=== PATIENT | male | born 1960 | race Caucasian/White ===

== ENCOUNTER 2017-02-12 14:06 | Emergency (ER) | payer MEDICARE, OTHER ==
[~2017-02-12] VITALS: Ht 188 cm; Wt 193.2 kg
[2017-02-12 14:11] VITALS: TEMP 97.8
[2017-02-12] MEDS ORDERED: KLOR-CON M2020 MEQ PO (14:55)
[2017-02-12] MEDS ORDERED: GRALISE300 MG PO (14:55)
[2017-02-12] MEDS ORDERED: PRINIVIL40 MG PO (14:56)
[2017-02-12] MEDS ORDERED: COREG 25MG25 MG/TAB PO (14:56)
[2017-02-12] MEDS ORDERED: LASIX 20MG TABL20 MG PO (14:56)
[2017-02-12] MEDS ORDERED: LIPITOR20 MG PO (14:57)
[2017-02-12] MEDS ORDERED: ASPIRIN 32325 MG/TAB PO (14:57)
[2017-02-12] MEDS ORDERED: HCTZ 25MG TAB25 MG PO (14:57)
[2017-02-12] MEDS ORDERED: MOBIC 7.5MG7.5 MG PO (14:58)
[2017-02-12] MEDS ORDERED: VITAMINC1000TA (14:58)
[2017-02-12] MEDS ORDERED: B-121000 MCG PO (14:58)
[2017-02-12] MEDS ORDERED: FLEXERIL 1010 MG/TAB PO (14:59)
[2017-02-12] MEDS ORDERED: AMOXICILLIN 8751 TAB PO (15:01)
[2017-02-12 15:05] LABS: B-TYPE NATRIURETIC PEPTIDE 64 pg/mL (0-125); TROPONIN-I < 0.012 ng/mL (0.000-0.034)
[2017-02-12 15:29] LABS: CALCIUM 9.6 mg/dL (8.4-10.2); CREATININE, serum 0.91 mg/dL (0.66-1.25); POTASSIUM 3.5 mmol/L (3.4-5.0)
[2017-02-12] MEDS ORDERED: ANTIVERT 25MG25 MG PO (18:52)
[2017-02-12 20:17] VITALS: BP 121/77; PULSE 70
== END 2017-02-12 20:31 | disposition home or self-care (01) ==
LOC: COL.ER 14:06
PROVIDERS: Emergency Medicine
DX: R60.9 Edema, unspecified (principal); R42 Dizziness and giddiness; R06.02 Shortness of breath

== ENCOUNTER 2017-03-04 07:22 | Emergency (ER) | payer MEDICARE ==
[~2017-03-04] VITALS: Ht 188 cm; Wt 195.5 kg
[~2017-03-04 07:22] MED LIST: AMOXICILLIN 8751 TAB PO; ANTIVERT 25MG25 MG PO; ASPIRIN 32325 MG/TAB PO; B-121000 MCG PO; COREG 25MG25 MG/TAB PO; FLEXERIL 1010 MG/TAB PO; GRALISE300 MG PO; HCTZ 25MG TAB25 MG PO; KLOR-CON M2020 MEQ PO; LASIX 20MG TABL20 MG PO; LIPITOR20 MG PO; MOBIC 7.5MG7.5 MG PO; PRINIVIL40 MG PO; VITAMINC1000TA
[2017-03-04 07:26] VITALS: TEMP 97.8
[2017-03-04 08:10] LABS: BASO % 0.4 % (0.0-2.0); EOS # 0.3 (0.0-0.7); EOS % 2.9 % (0-4.0); GRAN # 7.5 (1.4-6.5); GRAN % 81.4 % (42.2-75.2); HEMATOCRIT 40.4 % (42.0-52.0); HEMOGLOBIN 13.1 g/dl (13.5-18.0); LYMPH # 0.8 (1.2-3.4); LYMPH % 8.7 % (20.0-51.0); MEAN CELL VOLUME 94 fl (80.0-100.0); MEAN CORPUSCULAR HEMOGLOBIN 31 pg (27.0-31.0); MEAN CORPUSCULAR HGB CONC 32 g/dl (33.0-37.0); MEAN PLATELET VOLUME 9.3 fl (7.4-10.4); MONO # 0.6 (0.1-0.6); MONO % 6.2 % (1.7-9.3); PLATELET COUNT 265 K/mm3 (130-400); WHITE BLOOD COUNT 9.2 K/mm3 (4.8-10.8)
[2017-03-04 08:16] LABS: ADJUSTED CALCIUM 9.6 mg/dL (8.4-10.2); ALANINE AMINOTRANSFERASE 32 U/L (21-72); ALBUMIN 4.3 gm/dL (3.5-5.0); ALKALINE PHOSPHATASE 107 U/L (50-136); ANION GAP 12 mmol/L (7-16); BILIRUBIN,TOTAL 1.1 mg/dL (0.0-1.0); BLOOD UREA NITROGEN 21 mg/dL (9-20); C-REACTIVE PROTEIN 1.1 mg/dL (0.0-0.9); CALCIUM 9.8 mg/dL (8.4-10.2); CARBON DIOXIDE 27 mmol/L (22-30); CHLORIDE 102 mmol/L (98-107); CREATININE, serum 0.99 mg/dL (0.66-1.25); GLUCOSE 116 mg/dL (74-106); LIPASE 386 U/L (23-300); POTASSIUM 3.4 mmol/L (3.4-5.0); SODIUM 141 mmol/L (137-145); TOTAL PROTEIN 8.4 gm/dL (6.4-8.2)
[2017-03-04 08:23] LABS: ARTERIAL BLD GAS TCO2 CT 32.1; ARTERIAL BLOOD GAS BASE EXCESS 5.9 (-2-2); ARTERIAL BLOOD GAS HCO3 30.7 meq/L (22-26); ARTERIAL BLOOD GAS PHT 7.45 C (7.35-7.45); ARTERIAL BLOOD GAS PO2 66.7 mmHg (80-100); ARTERIAL BLOOD GAS PO2T 66.7 (80-100); ARTERIAL BLOOD GAS pH 7.45 (7.35-7.45)
[2017-03-04 08:24] LABS: ATS? YES
[2017-03-04 08:25] LABS: B-TYPE NATRIURETIC PEPTIDE 81 pg/mL (0-125)
[2017-03-04 08:26] LABS: TROPONIN-I < 0.012 ng/mL (0.000-0.034)
[2017-03-04 12:30] VITALS: BP 137/87; PULSE 62
== END 2017-03-04 12:30 ==
LOC: COL.ER 07:22
PROVIDERS: Emergency Medicine
DX: R09.02 Hypoxemia (principal); E11.9 Type 2 diabetes mellitus without complications; I10 Essential (primary) hypertension; E78.5 Hyperlipidemia, unspecified; Z79.84 Long term (current) use of oral hypoglycemic drugs
CPT/HCPCS: Q9967

== ENCOUNTER 2018-10-14 10:39 | Emergency (ER) | payer MEDICARE, MEDICAID ==
[~2018-10-14] VITALS: Ht 188 cm; Wt 197.7 kg
[~2018-10-14 10:39] MED LIST changes: -MOBIC 7.5MG7.5 MG PO; +MOBIC15 MG PO
[2018-10-14 10:49] VITALS: TEMP 96.8
[2018-10-14] MEDS ORDERED: AMOXICILLIN 8751 TAB PO (11:24)
[2018-10-14 11:27] LABS: HEMATOCRIT 39.9 % (42.0-52.0); HEMOGLOBIN 12.9 g/dl (13.5-18.0); MEAN CELL VOLUME 98 fl (80.0-100.0); MEAN CORPUSCULAR HEMOGLOBIN 32 pg (27.0-31.0); MEAN CORPUSCULAR HGB CONC 32 g/dl (33.0-37.0); MEAN PLATELET VOLUME 8.7 fl (7.4-10.4); PLATELET COUNT 247 K/mm3 (130-400); RED BLOOD COUNT 4.09 M/mm3 (4.20-5.60); REDCELL DISTRIBUTION WIDTH-CV 13.6 % (11.5-14.5)
[2018-10-14 11:41] LABS: ALANINE AMINOTRANSFERASE 15 U/L (21-72); ALBUMIN 4.1 gm/dL (3.5-5.0); ALKALINE PHOSPHATASE 96 U/L (50-136); ANION GAP 12 mmol/L (7-16); AST,SGOT 27 U/L (15-37); BILIRUBIN,TOTAL 0.8 mg/dL (0.0-1.0); BLOOD UREA NITROGEN 22 mg/dL (9-20); CALCIUM 9.7 mg/dL (8.4-10.2); CARBON DIOXIDE 33 mmol/L (22-30); CHLORIDE 98 mmol/L (98-107); CREATININE, serum 1.08 (0.66-1.25); GLUCOSE 113 mg/dL (74-106); LIPASE 164 U/L (23-300); POTASSIUM 3.4 mmol/L (3.4-5.0); SODIUM 143 mmol/L (137-145); TOTAL PROTEIN 8.2 gm/dL (6.4-8.2)
[2018-10-14 11:46] LABS: PH 7 (5-8); SQUAMOUS EPITHELIAL None Seen /hpf; URINE APPEARANCE Clear; URINE BACTERIA None Seen /hpf; URINE BILIRUBIN Negative (NEGATIVE); URINE BLOOD Negative (NEGATIVE); URINE COLOR Straw; URINE GLUCOSE Negative (NEGATIVE); URINE KETONE Negative (NEGATIVE); URINE LEUKOCYTE ESTERASE Negative (NEGATIVE); URINE NITRATE Negative (NEGATIVE); URINE PROTEIN(semi-quant) Negative (NEGATIVE); URINE RBC 0-2 /hpf; URINE UROBILINOGEN Negative (NEGATIVE); URINE WBC 0-2 /hpf
[2018-10-14 11:47] LABS: BASOPHIL 1 % (0-2); EOSINOPHIL 6 % (0-4); LYMPHOCYTE 10 % (20.0-51.0); NEUTROPHILS 79 % (42.0-75.2); PLATELET ESTIMATE NORMAL (NORMAL)
[2018-10-14 11:49] LABS: COLLECTION METHOD CLEAN CATCH
[2018-10-14 11:52] LABS: TROPONIN-I < 0.012 ng/mL (0.000-0.035)
[2018-10-14] MEDS ORDERED: ZYLOPRIM 100MG100 MG PO (12:40)
[2018-10-14] MEDS ORDERED: TYLENOL 325MG325 MG PO (12:42)
[2018-10-14] MEDS ORDERED: TUMS500 MG (12:43)
[2018-10-14] MEDS ORDERED: NATURAL IRON65 MG (12:44)
[2018-10-14] MEDS ORDERED: COLACE 100100 MG/CAP PO (12:46)
[2018-10-14 13:40] VITALS: BP 104/71; PULSE 68
== END 2018-10-14 13:40 | disposition home or self-care (01) ==
LOC: COL.ER 10:39
PROVIDERS: Emergency Medicine
DX: J40 Bronchitis, not specified as acute or chronic (principal); J32.9 Chronic sinusitis, unspecified; I10 Essential (primary) hypertension; E11.9 Type 2 diabetes mellitus without complications; E66.01 Morbid (severe) obesity due to excess calories; G47.33 Obstructive sleep apnea (adult) (pediatric); I87.2 Venous insufficiency (chronic) (peripheral); Z68.43 Body mass index [BMI] 50.0-59.9, adult; Z79.82 Long term (current) use of aspirin
CPT/HCPCS: J2060; J2405; J7040

== ENCOUNTER 2018-10-30 13:52 | Inpatient (IN) | payer MEDICARE ==
[~2018-10-30] VITALS: Ht 188 cm; Wt 203.0 kg
[~2018-10-30 13:52] MED LIST changes: +COLACE 100100 MG/CAP PO; +NATURAL IRON65 MG; +TUMS500 MG; +TYLENOL 325MG325 MG PO; +ZYLOPRIM 100MG100 MG PO
[2018-10-30 16:18] LABS: BASO % 0.4 % (0.0-2.0); EOS # 0.6 (0.0-0.7); EOS % 7.9 % (0-4.0); GRAN % 73.5 % (42.2-75.2); HEMATOCRIT 39.1 % (42.0-52.0); HEMOGLOBIN 12.6 g/dl (13.5-18.0); LYMPH # 0.7 (1.2-3.4); LYMPH % 9.1 % (20.0-51.0); MEAN CELL VOLUME 98 fl (80.0-100.0); MEAN CORPUSCULAR HEMOGLOBIN 31 pg (27.0-31.0); MEAN CORPUSCULAR HGB CONC 32 g/dl (33.0-37.0); MEAN PLATELET VOLUME 8.8 fl (7.4-10.4); MONO # 0.7 (0.1-0.6); MONO % 8.9 % (1.7-9.3); PLATELET COUNT 260 K/mm3 (130-400); RED BLOOD COUNT 4.01 M/mm3 (4.20-5.60); REDCELL DISTRIBUTION WIDTH-CV 13.7 % (11.5-14.5)
[2018-10-30 16:24] LABS: ALANINE AMINOTRANSFERASE 14 U/L (21-72); ALKALINE PHOSPHATASE 95 U/L (50-136); ANION GAP 11 mmol/L (7-16); AST,SGOT 26 U/L (15-37); BILIRUBIN,TOTAL 0.5 mg/dL (0.0-1.0); BLOOD UREA NITROGEN 20 mg/dL (9-20); C-REACTIVE PROTEIN 1.6 mg/dL (0.0-0.9); CALCIUM 9.4 mg/dL (8.4-10.2); CARBON DIOXIDE 32 mmol/L (22-30); CHLORIDE 100 mmol/L (98-107); CREATININE, serum 1.01 (0.66-1.25); GLUCOSE 84 mg/dL (74-106); POTASSIUM 3.6 mmol/L (3.4-5.0); SODIUM 144 mmol/L (137-145)
[2018-10-30 16:34] LABS: TROPONIN-I < 0.012 ng/mL (0.000-0.035)
[2018-10-30] MEDS ORDERED: ZYLOPRIM 100MG100 MG PO (17:18)
--- NOTE | 2018-10-30 19:16 | NUR ---
Reported off to assistant casino shift manager
[2018-10-30 19:45] VITALS: BP 122/63; PULSE 72; TEMP 98.5
[2018-10-30 20:00] VITALS: BP 122/63; PULSE 73; TEMP 98.5
[2018-10-31] VITALS (7 sets, daily range): BP systolic 96–136; BP diastolic 51–80; PULSE 61–71; TEMP 97.5–98.3
--- NOTE | 2018-10-31 05:18 | NUR ---
Patient has rested well overnight with c-pap in place per home settings. Patient is alert and oriented, answers questions appropriately. Bilateral lower extremities are edemetous, patient has lymphedema at baseline. Skin on BLE below the knees is reddened, rough/scaly and flaking. Right great toe has an open wound that patient reports has been draining for "a while". Patient states that while he normally has neuropathy, it has worsened recently. Patient states he has pain in his foot and legs that he rates a 4/10, but declines pain medication. Patient denies further needs, call light within reach.
[2018-10-31 08:02] LABS: CALCIUM 9.2 mg/dL (8.4-10.2); CREATININE, serum 0.9 (0.66-1.25)
[2018-10-31 09:48] LABS: HEMATOCRIT 41.6 % (42.0-52.0); HEMOGLOBIN 13.4 g/dl (13.5-18.0); MEAN CELL VOLUME 99 fl (80.0-100.0); MEAN CORPUSCULAR HEMOGLOBIN 32 pg (27.0-31.0); MEAN CORPUSCULAR HGB CONC 32 g/dl (33.0-37.0); MEAN PLATELET VOLUME 9.1 fl (7.4-10.4); PLATELET COUNT 251 K/mm3 (130-400); RED BLOOD COUNT 4.22 M/mm3 (4.20-5.60); REDCELL DISTRIBUTION WIDTH-CV 13.9 % (11.5-14.5)
--- NOTE | 2018-10-31 09:51 | NUR ---
Patient just left to get his MRI this morning. Patient has been NPO this morning, but did have water with his morning pills. Patient was measured per request of Radiology to see if patient would be able to go into the MRI machine. He was 68" around hip/abdomen. Patient very talkative this morning. He wrote down his menu for breakfast so that he would be ready to order upon his return from the MRI. Patient denied pain this morning. Patient was given slip proof socks to put on bilateral feet per this nurse.
[2018-10-31 11:15] LABS: BAND 5 % (0-10); EOSINOPHIL 7 % (0-4); LYMPHOCYTE 15 % (20.0-51.0); NEUTROPHILS 68 % (42.0-75.2); PLATELET ESTIMATE NORMAL (NORMAL)
--- NOTE | 2018-10-31 12:02 | NUR ---
Initial visit; Patient thanked Support Architect for looking in on him and offering spiritual care.
--- NOTE | 2018-10-31 13:40 | NUR ---
Patient resting on side of bed at this time, call light in reach and working on a word search problem. Patient returned from MRI this morning and results have came in on MRI, awaiting any new orders per Dr. Chávez, Hosptialist. Will continue to monitor.
--- NOTE | 2018-10-31 14:04 | NUR ---
SW attended clinical rounds to discuss discharge planning. Patient lives at home alone in [place]. Patient's PCP is Dr Grey and he obtains prescriptions from [facility]. Patient denies any difficulties obtaining or paying for medications. Patient does not use any home health services, currently, but has used those services in the past. Patient reports he has a wheelchair, front wheeled walker, four wheeled walker, and a hospital bed at home. Patient reports that he has noticed he has been more weak in the past month and has gone to the ER 4 different times for this reason. Patient reports he would like to go somewhere for post acute rehab after he is discharged. Patient reports he contacted Alessia from [facility] yesterday and they are expecting him once he is discharged. DEVIN informed patient that in order to go to a SNF for rehab, there are certain Medicare requirements before Medicare will pay for skilled. DEVIN reported she can fax a referral to [facility] for rehab. Patient signed choice form. DEVIN inquired what patient's plan was after rehab. Patient reports he is going to move in with his daughter, here in [place], because he does not feel confortable living at home alone anymore. SW will continue to follow to ensure a safe discharge plan. DEVIN then spoke to Jes at [facility] and she reports they have a bed for patient reserved. DEVIN faxed referral.
--- NOTE | 2018-10-31 21:05 | NUR ---
Patient sitting at edge of bed. Is alert and oriented x4. Has bilateral lower leg swelling with redness and discoloration. Voiding per urinal yellow urine. Lungs are clear bilaterally. Has redness under right breast and into axilla fold, antifungal powder applied. Has a draining wound to right foot at base of great toe extending under 2nd toe. Patient reports neuropathy of feet, but complains of muscle spasms and is medicated at this time with Flexeril. Has own CPAP at bedside.
[2018-11-01 04:00] VITALS: BP 127/65; PULSE 64; TEMP 98.3
--- NOTE | 2018-11-01 05:30 | NUR ---
IV Vancomycin infusing to right AC site without redness or swelling. Offers no concerns this AM.
[2018-11-01 06:55] LABS: BASO % 0.3 % (0.0-2.0); EOS # 0.6 (0.0-0.7); GRAN # 5.1 (1.4-6.5); GRAN % 72.8 % (42.2-75.2); HEMATOCRIT 41.1 % (42.0-52.0); HEMOGLOBIN 13.2 g/dl (13.5-18.0); LYMPH # 0.9 (1.2-3.4); LYMPH % 12.3 % (20.0-51.0); MEAN CELL VOLUME 98 fl (80.0-100.0); MEAN CORPUSCULAR HEMOGLOBIN 32 pg (27.0-31.0); MEAN CORPUSCULAR HGB CONC 32 g/dl (33.0-37.0); MEAN PLATELET VOLUME 9.4 fl (7.4-10.4); MONO # 0.4 (0.1-0.6); MONO % 6.3 % (1.7-9.3); PLATELET COUNT 226 K/mm3 (130-400); RED BLOOD COUNT 4.19 M/mm3 (4.20-5.60); REDCELL DISTRIBUTION WIDTH-CV 13.7 % (11.5-14.5)
[2018-11-01 07:13] LABS: CALCIUM 8.8 mg/dL (8.4-10.2); CREATININE, serum 0.95 (0.66-1.25); POTASSIUM 3.4 mmol/L (3.4-5.0)
--- NOTE | 2018-11-01 07:20 | NUR ---
bedside shift report received from JOVANNA Vanegas
--- NOTE | 2018-11-01 08:15 | NUR ---
resting in bed and has had breakfast and tolerated well, full assessment completed, see interventions for further info
[2018-11-01 08:30] VITALS: BP 109/58; PULSE 70; TEMP 98.3
--- NOTE | 2018-11-01 09:34 | NUR ---
DEVIN attended clinical rounds. Patient will be started on PO antibiotics today. Patient will likely discharge tomorrow 11/02 to [facility]. DEVIN faxed PT/OT eval.
--- NOTE | 2018-11-01 09:50 | NUR ---
Dr Medrano and care team in to see zee, called Wound Care clinic to remind them about consult, will plan to see on
--- NOTE | 2018-11-01 10:48 | NUR ---
Follow-up visit; Patient thanked Taker Out for looking in on him today and visiting, which is one of his favorite things to do (he says).
--- NOTE | 2018-11-01 10:49 | NUR ---
sitting up on side of bed working on crossword puzzles, denies needs
[2018-11-01 11:13] VITALS: BP 93/45; PULSE 64; TEMP 97.5
--- NOTE | 2018-11-01 11:36 | NUR ---
remains sitting up on side of bed and denies pain or needs
--- NOTE | 2018-11-01 14:20 | NUR ---
resting up on side of bed, denies needs
--- NOTE | 2018-11-01 16:03 | NUR ---
ambulating in [place]chi with physical therapy
[2018-11-01 16:35] VITALS: BP 129/71; PULSE 63; TEMP 98.1
--- NOTE | 2018-11-01 18:00 | NUR ---
sitting up on side of bed eating supper, denies needs
--- NOTE | 2018-11-01 18:57 | NUR ---
bedside shift report given to JOVANNA Vanegas
[2018-11-01 20:22] VITALS: BP 115/58; PULSE 65; TEMP 97.9
--- NOTE | 2018-11-01 21:00 | NUR ---
Patient in bed, ready for sleep. CPAP set up by RT. Takes HS meds including Flexeril for muscle spasms. SL to right AC. Did make patient aware of next dose of IV antibiotic for 2329.
--- NOTE | 2018-11-01 23:30 | NUR ---
IV antibiotic infusing to right AC SL site, no redness or swelling noted.
[2018-11-01 23:59] VITALS: BP 95/55; PULSE 70; TEMP 97.9
--- NOTE | 2018-11-02 02:28 | NUR ---
IV site leaking. Redressed and flushed. No swelling or pain experienced by patient at this time.
[2018-11-02 03:41] VITALS: BP 90/45; PULSE 63; TEMP 98.1
[2018-11-02 06:08] LABS: HEMATOCRIT 37.2 % (42.0-52.0); HEMOGLOBIN 11.9 g/dl (13.5-18.0); MEAN CELL VOLUME 99 fl (80.0-100.0); MEAN CORPUSCULAR HEMOGLOBIN 32 pg (27.0-31.0); MEAN CORPUSCULAR HGB CONC 32 g/dl (33.0-37.0); MEAN PLATELET VOLUME 9.1 fl (7.4-10.4); PLATELET COUNT 225 K/mm3 (130-400); RED BLOOD COUNT 3.76 M/mm3 (4.20-5.60); REDCELL DISTRIBUTION WIDTH-CV 13.7 % (11.5-14.5)
[2018-11-02 06:25] LABS: CALCIUM 8.7 mg/dL (8.4-10.2); CREATININE, serum 1.09 (0.66-1.25); POTASSIUM 3.2 mmol/L (3.4-5.0)
[2018-11-02 06:44] LABS: BAND 2 % (0-10); BASOPHIL 1 % (0-2); EOSINOPHIL 8 % (0-4); HYPOCHROMIA 2+; LYMPHOCYTE 12 % (20.0-51.0); NEUTROPHILS 74 % (42.0-75.2); PLATELET ESTIMATE NORMAL (NORMAL)
[2018-11-02 07:53] VITALS: BP 132/67; PULSE 67; TEMP 98
--- NOTE | 2018-11-02 08:00 | NUR ---
PATIENT IS SITTING UP AT THE EDGE OF THE BED THIS MORNING WITH HIS BREAKFAST TRAY. PATIENT IS A&OX4. VSS. EXPIRATORY WHEEZES AUSCULTATD OVER ALL LUNG MCKNIGHT. PATIENT DENIES SHORTNESS OF BREATH OR A PRODUCTIVE COUGH. BOWEL SOUNDS ACTIVE ALL FOUR QUADRANTS. PATIENT TOLERATING DIET WITHOUT ANY COMPLAINTS OF N/V. EXCORIATION UNDER RIGHT BREAST/AXILLA AREA. DESENEX POWDER APPLIED. OPEN WOUND ON RIGHT FOOT DRESSED WITH GAUZE DRESSING, AND IS CD&I. EDEMA TO BLE. RIGHT WRIST INT. CALL LIGHT WITHIN REACH. PATIENT DENIES ANY OTHER NEEDS AT THIS TIME.
--- NOTE | 2018-11-02 09:21 | NUR ---
Follow-up; Patient states he is doing well and wishes Electrochemist well.
--- NOTE | 2018-11-02 10:11 | NUR ---
DEVIN spoke with PA about discharge today. She reports that they would like patient to be seen by wound care before discharge and they are planning to switch him to oral antibiotics today. Patient will likely discharge tomorrow. DEVIN informed [facility] and will fax updates. DEVIN also informed patient that he will likely discharge tomorrow.
[2018-11-02 12:55] VITALS: BP 117/58; PULSE 64; TEMP 98
--- NOTE | 2018-11-02 13:04 | NUR ---
SW met with patient to review IM before discharge tomorrow. Patient verbalized understanding, signed and did not want a copy.
[2018-11-02 16:55] VITALS: BP 128/59; PULSE 64; TEMP 97.2
--- NOTE | 2018-11-02 18:46 | NUR ---
REPORT GIVEN TO JOVANNA HARRINGTON.
--- NOTE | 2018-11-02 19:49 | NUR ---
Cleansed rt foot ulcer below great toe and second toe, no drainage noted. Placed dry gauze and wrapped with soft cling. Applied Desitin powder under abdominal fold and rt axilla.
[2018-11-02 20:30] VITALS: BP 131/75; PULSE 64; TEMP 97.5
[2018-11-02 23:29] VITALS: BP 123/54; PULSE 63; TEMP 98.1
--- NOTE | 2018-11-03 03:00 | NUR ---
PATIENT WOKE UP FEELING SHORT OF BREATH, SAO2=96% ON 2L/NC PULSE=65. PATIENT USUALLY SLEEPS WITH A CPAP, BUT HIS WAS SENT HOME TO BE CLEANED YESTERDAY. FEELS BETTER AFTER DEEP BREATHING AND RELAXING.
[2018-11-03 03:15] VITALS: BP 133/55; PULSE 64; TEMP 97.6
[2018-11-03 07:52] LABS: BASO % 0.4 % (0.0-2.0); EOS # 0.6 (0.0-0.7); EOS % 8.8 % (0-4.0); HEMATOCRIT 39.6 % (42.0-52.0); LYMPH # 0.8 (1.2-3.4); LYMPH % 10.9 % (20.0-51.0); MEAN CELL VOLUME 97 fl (80.0-100.0); MEAN CORPUSCULAR HEMOGLOBIN 32 pg (27.0-31.0); MEAN CORPUSCULAR HGB CONC 33 g/dl (33.0-37.0); MEAN PLATELET VOLUME 9.8 fl (7.4-10.4); MONO # 0.5 (0.1-0.6); MONO % 7.6 % (1.7-9.3); PLATELET COUNT 207 K/mm3 (130-400); RED BLOOD COUNT 4.09 M/mm3 (4.20-5.60); REDCELL DISTRIBUTION WIDTH-CV 13.8 % (11.5-14.5)
--- NOTE | 2018-11-03 08:00 | NUR ---
PATIENT IS SITTING UP AT THE EDGE OF THE BED THIS MORNING. PATIENT IS A&OX4. VSS. UPPER LUNG LOBES CLEAR UPON AUCULTATION. LUNG BASES DIMINISHED BILATERALLY. PATIENT DENIES SHORTNESS OF BREATH OR A PRODUCTIVE COUGH. BOWEL SOUND ACTIVE ALL FOUR QUADRANTS. PATIENT TOLERATING DIET WITHOUT ANY COMPLAINTS OF N/V. EXCORIATION UNDER RIGHT BREAST/AXILLA AREA. DESENEX POWDER APPLIED. OPEN WOUND ON RIGHT FOOT DRESSED WITH GAUZE DRESSING, AND IS CD&I. EDEMA TO BLE. RIGHT WRIST INT. CALL LIGHT WITHIN REACH. PATIENT DENIES ANY OTHER NEEDS AT THIS TIME.
[2018-11-03 08:07] VITALS: BP 132/62; PULSE 65; TEMP 98
[2018-11-03] MEDS ORDERED: CIPRO750 MG PO (08:51)
[2018-11-03 09:05] LABS: CALCIUM 9.2 mg/dL (8.4-10.2); CREATININE, serum 0.99 (0.66-1.25); POTASSIUM 3.8 mmol/L (3.4-5.0)
[2018-11-03 11:25] VITALS: BP 132/62; PULSE 65; TEMP 98
--- NOTE | 2018-11-03 11:30 | NUR ---
Patient will discharge to [facility]. DEVIN faxed discharge orders and arranged transportation for 12pm. Due to hospital staff finding bed bugs in patient's belongings, SW will make an APS reports. SW also informed [facility] of the bed bugs but that all of his belongings have been washed and debugged.
--- NOTE | 2018-11-03 12:00 | NUR ---
REPORT CALLED TO CLIFFORD CORREA AT [facility].
--- NOTE | 2018-11-03 12:20 | NUR ---
PATIENT TAKEN TO PRIVATE TRANSPORT VEHICLE VIA WHEELCHAIR. PATIENT TRANSFERRED.
== END 2018-11-03 12:20 | DRG 603 ==
LOC: COL.ER 13:52 → SURG 16:57 → COL.ER 17:42 → SURG 18:22
PROVIDERS: Emergency Medicine; Nurse Practitioner Family; Physician Assistant; ADMIT Internal Medicine
DX: L03.115 Cellulitis of right lower limb (principal); I25.10 Atherosclerotic heart disease of native coronary artery without angina pectoris; M10.9 Gout, unspecified; E66.01 Morbid (severe) obesity due to excess calories; I10 Essential (primary) hypertension; G47.33 Obstructive sleep apnea (adult) (pediatric); G89.29 Other chronic pain; B96.5 Pseudomonas (aeruginosa) (mallei) (pseudomallei) as the cause of diseases classified elsewhere; R73.03 Prediabetes; I73.9 Peripheral vascular disease, unspecified; Z90.49 Acquired absence of other specified parts of digestive tract; Z95.820 Peripheral vascular angioplasty status with implants and grafts; I25.2 Old myocardial infarction; Z79.82 Long term (current) use of aspirin; Z88.8 Allergy status to other drugs, medicaments and biological substances
CPT/HCPCS: 99222-AI; 99232-AI; 99233-AI; 99239; A9585; J1650; J2543; J3370; J7040; J7050

== ENCOUNTER 2018-11-25 05:06 | Emergency (ER) | payer MEDICARE ==
[~2018-11-25] VITALS: Ht 188 cm; Wt 202.3 kg
[~2018-11-25 05:06] MED LIST changes: +CIPRO750 MG PO; -GRALISE300 MG PO; +NEURONTIN300 MG/CAP PO
[2018-11-25 05:19] VITALS: TEMP 97.6
[2018-11-25 06:09] LABS: BASO % 0.2 % (0.0-2.0); EOS # 0.5 (0.0-0.7); EOS % 6.1 % (0-4.0); GRAN # 6.3 (1.4-6.5); HEMATOCRIT 38.8 % (42.0-52.0); HEMOGLOBIN 12.2 g/dl (13.5-18.0); LYMPH # 0.9 (1.2-3.4); LYMPH % 10.9 % (20.0-51.0); MEAN CELL VOLUME 97 fl (80.0-100.0); MEAN CORPUSCULAR HEMOGLOBIN 31 pg (27.0-31.0); MEAN CORPUSCULAR HGB CONC 31 g/dl (33.0-37.0); MEAN PLATELET VOLUME 8.8 fl (7.4-10.4); MONO # 0.6 (0.1-0.6); MONO % 7.4 % (1.7-9.3); PLATELET COUNT 251 K/mm3 (130-400); RED BLOOD COUNT 3.99 M/mm3 (4.20-5.60); REDCELL DISTRIBUTION WIDTH-CV 13.4 % (11.5-14.5)
[2018-11-25 06:28] LABS: ALANINE AMINOTRANSFERASE 20 U/L (21-72); ALBUMIN 4.1 gm/dL (3.5-5.0); ALKALINE PHOSPHATASE 99 U/L (50-136); ANION GAP 10 mmol/L (7-16); AST,SGOT 28 U/L (15-37); BILIRUBIN,TOTAL 0.6 mg/dL (0.0-1.0); BLOOD UREA NITROGEN 30 mg/dL (9-20); C-REACTIVE PROTEIN 2.9 mg/dL (0.0-0.9); CALCIUM 9.5 mg/dL (8.4-10.2); CARBON DIOXIDE 32 mmol/L (22-30); CHLORIDE 100 mmol/L (98-107); CREATININE, serum 1.14 (0.66-1.25); GLUCOSE 107 mg/dL (74-106); POTASSIUM 3.4 mmol/L (3.4-5.0); SODIUM 141 mmol/L (137-145); TOTAL PROTEIN 7.9 gm/dL (6.4-8.2)
[2018-11-25 06:42] LABS: TROPONIN-I < 0.012 ng/mL (0.000-0.035)
[2018-11-25] MEDS ORDERED: CIPRO 500MG TA500 MG PO (06:47)
[2018-11-25 06:54] VITALS: BP 128/81; PULSE 67
== END 2018-11-25 07:04 | disposition home or self-care (01) ==
LOC: COL.ER 05:06
PROVIDERS: Emergency Medicine
DX: I87.2 Venous insufficiency (chronic) (peripheral) (principal); S91.301A Unspecified open wound, right foot, initial encounter; I10 Essential (primary) hypertension; Z90.49 Acquired absence of other specified parts of digestive tract; Z79.82 Long term (current) use of aspirin; X58.XXXA Exposure to other specified factors, initial encounter

== ENCOUNTER 2019-01-17 06:31 | Observation (INO) | payer MEDICARE ==
[~2019-01-17] VITALS: Ht 190.5 cm; Wt 195.5 kg
[~2019-01-17 06:31] MED LIST changes: +CIPRO 500MG TA500 MG PO; +MAXIPIMEIVSOL IV; +PROTONIX 40MG T40 MG PO
[2019-01-17 06:57] LABS: BASO % 0.2 % (0.0-2.0); EOS # 0.2 (0.0-0.7); EOS % 2.2 % (0-4.0); GRAN # 7.7 (1.4-6.5); GRAN % 80.3 % (42.2-75.2); HEMATOCRIT 42.7 % (42.0-52.0); HEMOGLOBIN 13.7 g/dl (13.5-18.0); LYMPH % 10.3 % (20.0-51.0); MEAN CELL VOLUME 96 fl (80.0-100.0); MEAN CORPUSCULAR HEMOGLOBIN 31 pg (27.0-31.0); MEAN CORPUSCULAR HGB CONC 32 g/dl (33.0-37.0); MEAN PLATELET VOLUME 8.8 fl (7.4-10.4); MONO # 0.6 (0.1-0.6); MONO % 6.7 % (1.7-9.3); PLATELET COUNT 265 K/mm3 (130-400); RED BLOOD COUNT 4.43 M/mm3 (4.20-5.60); REDCELL DISTRIBUTION WIDTH-CV 14.2 % (11.5-14.5)
[2019-01-17 07:06] LABS: INR 1.2 (0.8-3.0); PROTHROMBIN TIME 13.8 SECONDS (9.7-12.8)
[2019-01-17 07:09] LABS: PARTIAL THROMBOPLASTIN TIME 32.9 SECONDS (26.0-37.0)
[2019-01-17 07:12] LABS: ALANINE AMINOTRANSFERASE 17 U/L (21-72); ALBUMIN 4.4 gm/dL (3.5-5.0); ALKALINE PHOSPHATASE 114 U/L (50-136); ANION GAP 11 mmol/L (7-16); AST,SGOT 24 U/L (15-37); BILIRUBIN,TOTAL 0.9 mg/dL (0.0-1.0); BLOOD UREA NITROGEN 25 mg/dL (9-20); C-REACTIVE PROTEIN 1.5 mg/dL (0.0-0.9); CALCIUM 10.2 mg/dL (8.4-10.2); CARBON DIOXIDE 30 mmol/L (22-30); CHLORIDE 99 mmol/L (98-107); CREATINE KINASE 54 U/L (55-170); CREATININE, serum 0.95 (0.66-1.25); GLUCOSE 110 mg/dL (74-106); LIPASE 219 U/L (23-300); POTASSIUM 3.5 mmol/L (3.4-5.0); SODIUM 140 mmol/L (137-145); TOTAL PROTEIN 8.7 gm/dL (6.4-8.2)
[2019-01-17 07:22] LABS: TROPONIN-I < 0.012 ng/mL (0.000-0.035)
[2019-01-17 17:03] VITALS: BP 140/80; PULSE 64; TEMP 97.9
[2019-01-17 17:08] VITALS: BP 140/80; PULSE 65; TEMP 97.9
--- NOTE | 2019-01-17 18:26 | NUR ---
Pt up to floor from the ED this afternoon, resting in room since, some C/O pain in chest and lower back areas, C/O numbness / tingling on his right side, right foot has compression bandage place by wound care, Pt stated that he had a pressure ulcer between his toes and that it has been healing well, initial assessments completed, VS since arriving have been stable.
[2019-01-17 19:52] VITALS: BP 125/62; PULSE 69; TEMP 98.8
--- NOTE | 2019-01-17 21:30 | NUR ---
Resting in bed. Assessment complete. Lungs clear. Heart sounds normal. Bowels active x4. Pulse present but weak in lower extremities. Bilateral lower leg edema +3, bilateral lower leg discoloration. Right foot wound covered with dressing-patient reports seeing wound care. Dressing currently CDI. IV left forearm infusing without complications. Reports 7 back pain. Repositioned and provided with PRN tylenol. denies other needs at this time. Call light in reach.
[2019-01-17 23:19] VITALS: BP 110/56; PULSE 66
[2019-01-18] VITALS (8 sets, daily range): BP systolic 99–159; BP diastolic 55–90; PULSE 65–79; TEMP 97.6–98.5
--- NOTE | 2019-01-18 00:15 | NUR ---
Resting in bed. Rating pain 4/10. Denies need for intervention at this time. Call light in reach.
--- NOTE | 2019-01-18 01:17 | NUR ---
Rating pain 6/10 in back. Provided with PRN sid
--- NOTE | 2019-01-18 05:28 | NUR ---
Patient had uneventful night. Required x1 dose and tylenol and norco for back pain. Resting in bed this AM. Call light in reach.
--- NOTE | 2019-01-18 06:34 | NUR ---
Patient sitting up on side of bed.
--- NOTE | 2019-01-18 06:39 | NUR ---
Report given to JOVANNA Khan
[2019-01-18 07:06] LABS: BASO % 0.1 % (0.0-2.0); EOS # 0.3 (0.0-0.7); EOS % 3.6 % (0-4.0); GRAN % 76.6 % (42.2-75.2); HEMATOCRIT 38.8 % (42.0-52.0); HEMOGLOBIN 12.4 g/dl (13.5-18.0); LYMPH % 12.8 % (20.0-51.0); MEAN CELL VOLUME 98 fl (80.0-100.0); MEAN CORPUSCULAR HEMOGLOBIN 31 pg (27.0-31.0); MEAN CORPUSCULAR HGB CONC 32 g/dl (33.0-37.0); MEAN PLATELET VOLUME 9.2 fl (7.4-10.4); MONO # 0.5 (0.1-0.6); MONO % 6.6 % (1.7-9.3); PLATELET COUNT 246 K/mm3 (130-400); RED BLOOD COUNT 3.97 M/mm3 (4.20-5.60); REDCELL DISTRIBUTION WIDTH-CV 14.2 % (11.5-14.5)
[2019-01-18 07:31] LABS: CALCIUM 8.9 mg/dL (8.4-10.2); CHOLESTEROL RISK RATIO 7.8; CREATININE, serum 1.02 (0.66-1.25); POTASSIUM 3.3 mmol/L (3.4-5.0)
--- NOTE | 2019-01-18 08:34 | NUR ---
Pt awake and alert, sitting on side of bed, talkative, able to bear weight and transfer with assistance, Coreg held fro ALEXANDER scan this AM, shift assessments complete, left Pt sitting, call light in reach.
--- NOTE | 2019-01-18 13:12 | NUR ---
SW met with the patient to discuss discharge plan. The patient lives in [place] with his ex- (Tanja ph#[phone]), daughter, and step-son. He reports independence with ADLs and has a walker, rolaider, wheelchair, and CPAP. He states that he just graduated from home health last week. He could not recall their name. The patient's PCP is Dr. Lloyd Auguste and he receives his medications at [facility]. He reports no difficulties obtaining his meds. The patient does have a DPOA-HC in EMR. It lists his brother, Calixto Lantigua, and two other individuals. The patient states that he has since completed a new DPOA-HC, which designates his brother, Calixto, and the alternate is his ex-, Tanja. He states that he has the documents at home. SW encouraged the patient to bring a copy to the hospital. The patient plans to return home with his family upon discharge. No other additional needs at this time.
--- NOTE | 2019-01-18 15:44 | NUR ---
DEVIN met with the patient to review discharge plan and to discuss PT's recommendation of outpatient PT. The patient reports that he would be agreeable to outpatient PT. DEVIN provided him with a list of the different therapy centers in [place]. The patient chose [facility]. DEVIN contacted and secured the patient an appointment for outpatient PT on 01/30 at 1100. DEVIN informed the community health agent of the appointment. DEVIN will need to fax the patient's discharge orders/PT script to [facility] on [facility] prior to discharge.
--- NOTE | 2019-01-18 18:00 | NUR ---
Pt resting in room, some C/O pain from his chronic issues, VS have been stable, Pt has been more stable while ambulating using a walker.
--- NOTE | 2019-01-18 22:30 | NUR ---
Resting in bed. Assessment complete. Lungs clear. Heart sounds normal. Bowels active x4. Pulses present throughout. Bilateral lower leg edema +3 with discoloration. Right dorsal foot wound covered with dressing. Dressing CDI. INT left forearm without complications. Denies pain. Denies needs at this time. Call light in reach.
--- NOTE | 2019-01-19 00:35 | NUR ---
Resting in bed. Denies needs. Call light in reach.
[2019-01-19 03:48] VITALS: BP 118/56; PULSE 69
--- NOTE | 2019-01-19 05:49 | NUR ---
Patient had unevenful night. Resting in bed this AM. Call light in reach.
--- NOTE | 2019-01-19 06:48 | NUR ---
Report given to JOVANNA Khan
[2019-01-19 07:38] LABS: BASO % 0.2 % (0.0-2.0); EOS # 0.3 (0.0-0.7); EOS % 3.7 % (0-4.0); GRAN # 6.4 (1.4-6.5); GRAN % 79.4 % (42.2-75.2); HEMATOCRIT 40.7 % (42.0-52.0); HEMOGLOBIN 13.2 g/dl (13.5-18.0); LYMPH # 0.8 (1.2-3.4); LYMPH % 10.2 % (20.0-51.0); MEAN CELL VOLUME 96 fl (80.0-100.0); MEAN CORPUSCULAR HEMOGLOBIN 31 pg (27.0-31.0); MEAN CORPUSCULAR HGB CONC 32 g/dl (33.0-37.0); MEAN PLATELET VOLUME 8.6 fl (7.4-10.4); MONO # 0.5 (0.1-0.6); MONO % 6.3 % (1.7-9.3); PLATELET COUNT 251 K/mm3 (130-400); RED BLOOD COUNT 4.26 M/mm3 (4.20-5.60); REDCELL DISTRIBUTION WIDTH-CV 14.2 % (11.5-14.5)
[2019-01-19 07:53] LABS: CALCIUM 9.3 mg/dL (8.4-10.2); CREATININE, serum 0.81 (0.66-1.25); POTASSIUM 3.8 mmol/L (3.4-5.0)
[2019-01-19 08:40] VITALS: BP 131/63; PULSE 71; TEMP 98
[2019-01-19] MEDS ORDERED: LIPITOR 40MG TA40 MG PO (09:38)
[2019-01-19] MEDS ORDERED: PLAVIX 75MG TAB75 MG PO (09:38)
--- NOTE | 2019-01-19 10:17 | NUR ---
Pt awaken upon entry sitting on side of bed, some C/O pain in back, shift assessments complete, left Pt call light in reach, bed in lowest position.
[2019-01-19 11:29] VITALS: BP 105/46; PULSE 77; TEMP 98
--- NOTE | 2019-01-19 11:35 | NUR ---
feed in worker attended clinical rounds and met with patient. Patient plans discharge today and will have outpatient physical therapy at [facility] on . Worker faxed therapy orders to the above clinic.
--- NOTE | 2019-01-19 14:16 | NUR ---
Pt discharged to home, escorted to entrance, left via private auto.
== END 2019-01-19 14:17 | disposition home or self-care (01) ==
LOC: COL.ER 06:31 → MEDICAL 09:02
PROVIDERS: Emergency Medicine; Physician Assistant; ADMIT Hospitalist
DX: R07.9 Chest pain, unspecified (principal); I25.10 Atherosclerotic heart disease of native coronary artery without angina pectoris; E66.01 Morbid (severe) obesity due to excess calories; E11.42 Type 2 diabetes mellitus with diabetic polyneuropathy; I10 Essential (primary) hypertension; E78.1 Pure hyperglyceridemia; Z79.899 Other long term (current) drug therapy; Z79.82 Long term (current) use of aspirin; Z90.49 Acquired absence of other specified parts of digestive tract; Z95.5 Presence of coronary angioplasty implant and graft; G47.33 Obstructive sleep apnea (adult) (pediatric); Z23 Encounter for immunization; Z99.89 Dependence on other enabling machines and devices; Z83.3 Family history of diabetes mellitus; Z82.49 Family history of ischemic heart disease and other diseases of the circulatory system; Z91.048 Other nonmedicinal substance allergy status; E78.5 Hyperlipidemia, unspecified; I25.2 Old myocardial infarction; E87.6 Hypokalemia; I87.2 Venous insufficiency (chronic) (peripheral); I89.0 Lymphedema, not elsewhere classified; M1A.9XX0 Chronic gout, unspecified, without tophus (tophi); G45.9 Transient cerebral ischemic attack, unspecified; J98.11 Atelectasis; M48.07 Spinal stenosis, lumbosacral region; G89.29 Other chronic pain; M54.9 Dorsalgia, unspecified
CPT/HCPCS: A9284; A9500; G0008; G0378; J1650; J1885; J2270; J2785; J3480; J7030; Q9967

== ENCOUNTER → 2019-01-25 | Outpatient (CLI) | payer MEDICARE ==
[~2019-01-25] MED LIST changes: +LIPITOR 40MG TA40 MG PO; +PLAVIX 75MG TAB75 MG PO
[2019-01-25 18:33] LABS: CREATININE, serum 0.92 (0.66-1.25); POTASSIUM 3.6 mmol/L (3.4-5.0)
== END ==
LOC: ZCOL.LAB 17:48
PROVIDERS: Family Medicine
DX: E11.9 Type 2 diabetes mellitus without complications (principal); E87.6 Hypokalemia

== ENCOUNTER → 2019-02-23 | Outpatient (CLI) | payer MEDICARE | LOC: COL.RAD 08:36 | DX: M48.061 Spinal stenosis, lumbar region without neurogenic claudication (principal); M51.26 Other intervertebral disc displacement, lumbar region ==

== ENCOUNTER 2019-03-24 11:56 | Emergency (ER) | payer MEDICARE ==
[~2019-03-24] VITALS: Ht 190.5 cm; Wt 195.5 kg
[2019-03-24 12:05] VITALS: PULSE 70
[2019-03-24 13:07] LABS: BASO % 0.2 % (0.0-2.0); EOS # 0.3 (0.0-0.7); EOS % 3.7 % (0-4.0); GRAN # 6.8 (1.4-6.5); GRAN % 80.8 % (42.2-75.2); HEMATOCRIT 42.9 % (42.0-52.0); LYMPH # 0.7 (1.2-3.4); LYMPH % 8.7 % (20.0-51.0); MEAN CELL VOLUME 96 fl (80.0-100.0); MEAN CORPUSCULAR HEMOGLOBIN 31 pg (27.0-31.0); MEAN CORPUSCULAR HGB CONC 33 g/dl (33.0-37.0); MEAN PLATELET VOLUME 8.8 fl (7.4-10.4); MONO # 0.5 (0.1-0.6); MONO % 6.4 % (1.7-9.3); PLATELET COUNT 253 K/mm3 (130-400); RED BLOOD COUNT 4.47 M/mm3 (4.20-5.60); REDCELL DISTRIBUTION WIDTH-CV 13.6 % (11.5-14.5)
[2019-03-24 13:13] LABS: INR 1.2 (0.8-3.0); PROTHROMBIN TIME 13.7 SECONDS (9.7-12.8)
[2019-03-24 13:15] LABS: ALANINE AMINOTRANSFERASE 13 U/L (21-72); ALBUMIN 4.3 gm/dL (3.5-5.0); ALKALINE PHOSPHATASE 109 U/L (50-136); ANION GAP 12 mmol/L (7-16); AST,SGOT 20 U/L (15-37); BLOOD UREA NITROGEN 20 mg/dL (9-20); CALCIUM 10.1 mg/dL (8.4-10.2); CARBON DIOXIDE 32 mmol/L (22-30); CHLORIDE 98 mmol/L (98-107); GLUCOSE 116 mg/dL (74-106); LIPASE 102 U/L (23-300); POTASSIUM 3.4 mmol/L (3.4-5.0); SODIUM 142 mmol/L (137-145); TOTAL PROTEIN 8.2 gm/dL (6.4-8.2)
[2019-03-24 13:29] LABS: TROPONIN-I < 0.012 ng/mL (0.000-0.035)
[2019-03-24 15:42] VITALS: BP 148/94; TEMP 98
== END 2019-03-24 15:50 | disposition home or self-care (01) ==
LOC: COL.ER 11:56
PROVIDERS: Emergency Medicine
DX: R51 Headache (principal); I10 Essential (primary) hypertension; E11.9 Type 2 diabetes mellitus without complications; I25.10 Atherosclerotic heart disease of native coronary artery without angina pectoris; I25.2 Old myocardial infarction; E66.9 Obesity, unspecified; Z79.02 Long term (current) use of antithrombotics/antiplatelets
CPT/HCPCS: J1200; J2765; Q9967

== ENCOUNTER 2019-05-12 16:32 | Emergency (ER) | payer MEDICARE, MEDICAID ==
[~2019-05-12] VITALS: Ht 177.8 cm; Wt 225.5 kg
[2019-05-12 16:37] VITALS: BP 139/84; TEMP 97.8
[2019-05-12 16:53] LABS: BASO % 0.2 % (0.0-2.0); EOS # 0.3 (0.0-0.7); EOS % 3.5 % (0-4.0); GRAN # 6.3 (1.4-6.5); GRAN % 73.8 % (42.2-75.2); HEMATOCRIT 42.8 % (42.0-52.0); HEMOGLOBIN 13.8 g/dl (13.5-18.0); LYMPH # 1.2 (1.2-3.4); LYMPH % 13.6 % (20.0-51.0); MEAN CELL VOLUME 97 fl (80.0-100.0); MEAN CORPUSCULAR HEMOGLOBIN 31 pg (27.0-31.0); MEAN CORPUSCULAR HGB CONC 32 g/dl (33.0-37.0); MONO # 0.7 (0.1-0.6); MONO % 8.5 % (1.7-9.3); PLATELET COUNT 269 K/mm3 (130-400); RED BLOOD COUNT 4.42 M/mm3 (4.20-5.60); REDCELL DISTRIBUTION WIDTH-CV 13.5 % (11.5-14.5)
[2019-05-12 17:05] LABS: ALBUMIN 4.4 gm/dL (3.5-5.0); BILIRUBIN,TOTAL 0.8 mg/dL (0.0-1.0); CALCIUM 9.4 mg/dL (8.4-10.2); CREATININE, serum 1.06 (0.66-1.25); POTASSIUM 3.3 mmol/L (3.4-5.0); TOTAL PROTEIN 8.2 gm/dL (6.4-8.2)
[2019-05-12] MEDS ORDERED: ASPIRIN 32325 MG/TAB PO (17:06)
[2019-05-12] MEDS ORDERED: MOTRIN 200200 MG/TAB PO (17:10)
[2019-05-12] MEDS ORDERED: BACTROBAN 22GM22 GM TOP (17:12)
[2019-05-12 19:03] VITALS: PULSE 68
== END 2019-05-12 19:03 | disposition home or self-care (01) ==
LOC: COL.ER 16:32
PROVIDERS: Family Medicine
DX: R51 Headache (principal); G89.29 Other chronic pain; E11.9 Type 2 diabetes mellitus without complications; E66.9 Obesity, unspecified; I25.10 Atherosclerotic heart disease of native coronary artery without angina pectoris; Z79.02 Long term (current) use of antithrombotics/antiplatelets; Z79.82 Long term (current) use of aspirin; Z68.45 Body mass index [BMI] 70 or greater, adult
CPT/HCPCS: J0780; J1100; J1200; J1885

== ENCOUNTER 2019-05-17 11:15 | Outpatient (RCR) | payer OTHER, MEDICAID ==
[~2019-05-17 11:15] MED LIST changes: +BACTROBAN 22GM22 GM TOP; +MOTRIN 200200 MG/TAB PO
== END 2019-07-22 | disposition home or self-care (01) ==
LOC: MKS.ESL.PT
DX: R26.89 Other abnormalities of gait and mobility (principal); E66.01 Morbid (severe) obesity due to excess calories

== ENCOUNTER 2019-06-13 11:00 | Outpatient (RCR) | payer MEDICARE, MEDICAID | END 2019-08-28 | disposition home or self-care (01) | LOC: MKS.ESL.PT | DX: E11.621 Type 2 diabetes mellitus with foot ulcer (principal); E66.01 Morbid (severe) obesity due to excess calories; L03.90 Cellulitis, unspecified; I89.0 Lymphedema, not elsewhere classified ==

== ENCOUNTER 2019-06-14 12:45 | Outpatient (RCR) | payer MEDICARE, MEDICAID | END 2019-08-26 | disposition still patient (30) | LOC: MKS.ESL.PT | DX: L03.90 Cellulitis, unspecified (principal); E11.621 Type 2 diabetes mellitus with foot ulcer; I89.0 Lymphedema, not elsewhere classified; E66.01 Morbid (severe) obesity due to excess calories ==

== ENCOUNTER 2019-09-15 22:12 | Emergency (ER) | payer MEDICARE, MEDICAID ==
[~2019-09-15] VITALS: Ht 188 cm; Wt 190.9 kg
[2019-09-15 22:15] VITALS: TEMP 97.9
[2019-09-15 22:45] LABS: BASO % 0.3 % (0.0-2.0); EOS # 0.3 (0.0-0.7); EOS % 2.6 % (0-4.0); GRAN # 8.9 (1.4-6.5); GRAN % 78.9 % (42.2-75.2); HEMATOCRIT 40.5 % (42.0-52.0); HEMOGLOBIN 13.2 g/dl (13.5-18.0); LYMPH # 1.2 (1.2-3.4); MEAN CELL VOLUME 95 fl (80.0-100.0); MEAN CORPUSCULAR HEMOGLOBIN 31 pg (27.0-31.0); MEAN CORPUSCULAR HGB CONC 33 g/dl (33.0-37.0); MEAN PLATELET VOLUME 8.9 fl (7.4-10.4); MONO # 0.8 (0.1-0.6); MONO % 6.8 % (1.7-9.3); PLATELET COUNT 258 K/mm3 (130-400); RED BLOOD COUNT 4.28 M/mm3 (4.20-5.60); REDCELL DISTRIBUTION WIDTH-CV 13.7 % (11.5-14.5)
[2019-09-15 22:49] LABS: INR 1.3 (0.8-3.0)
[2019-09-15 22:59] LABS: ALANINE AMINOTRANSFERASE 24 U/L (4-49); ALBUMIN 4.1 gm/dL (3.5-5.0); ALKALINE PHOSPHATASE 122 U/L (50-136); ANION GAP 9 mmol/L (7-16); AST,SGOT 29 U/L (15-37); BILIRUBIN,TOTAL 0.8 mg/dL (0.0-1.0); BLOOD UREA NITROGEN 24 mg/dL (9-20); CALCIUM 9.3 mg/dL (8.4-10.2); CARBON DIOXIDE 29 mmol/L (22-30); CHLORIDE 98 mmol/L (98-107); CREATININE, serum 0.93 (0.66-1.25); GLUCOSE 101 mg/dL (74-106); LIPASE 265 U/L (23-300); POTASSIUM 3.3 mmol/L (3.4-5.0); SODIUM 136 mmol/L (137-145); TOTAL PROTEIN 7.8 gm/dL (6.4-8.2)
[2019-09-15 23:10] LABS: TROPONIN-I < 0.012 ng/mL (0.000-0.035)
[2019-09-16 02:29] VITALS: BP 134/77; PULSE 70
== END 2019-09-16 02:38 | disposition home or self-care (01) ==
LOC: COL.ER 22:12
PROVIDERS: Physician Assistant
DX: R06.02 Shortness of breath (principal); R10.12 Left upper quadrant pain; R51 Headache; I25.10 Atherosclerotic heart disease of native coronary artery without angina pectoris; E66.9 Obesity, unspecified; I10 Essential (primary) hypertension; M10.9 Gout, unspecified; E78.5 Hyperlipidemia, unspecified; Z79.02 Long term (current) use of antithrombotics/antiplatelets; Z79.82 Long term (current) use of aspirin; Z90.89 Acquired absence of other organs; Z68.43 Body mass index [BMI] 50.0-59.9, adult
CPT/HCPCS: J2270; J7030

== ENCOUNTER 2019-10-07 16:45 | Emergency (ER) | payer MEDICARE, MEDICAID ==
[~2019-10-07] VITALS: Ht 188 cm; Wt 197.7 kg
[2019-10-07 16:50] VITALS: TEMP 98.5
[2019-10-07 17:14] LABS: BASO % 0.3 % (0.0-2.0); EOS # 0.3 (0.0-0.7); EOS % 2.6 % (0-4.0); GRAN # 8.5 (1.4-6.5); GRAN % 80.4 % (42.2-75.2); HEMATOCRIT 42.2 % (42.0-52.0); HEMOGLOBIN 13.7 g/dl (13.5-18.0); INR 1.3 (0.8-3.0); LYMPH % 9.5 % (20.0-51.0); MEAN CELL VOLUME 94 fl (80.0-100.0); MEAN CORPUSCULAR HEMOGLOBIN 31 pg (27.0-31.0); MEAN CORPUSCULAR HGB CONC 33 g/dl (33.0-37.0); MONO # 0.7 (0.1-0.6); MONO % 6.8 % (1.7-9.3); PLATELET COUNT 280 K/mm3 (130-400); PROTHROMBIN TIME 14.1 SECONDS (9.7-12.8); RED BLOOD COUNT 4.49 M/mm3 (4.20-5.60); REDCELL DISTRIBUTION WIDTH-CV 13.7 % (11.5-14.5)
[2019-10-07 17:16] LABS: PARTIAL THROMBOPLASTIN TIME 33.2 SECONDS (26.0-37.0)
[2019-10-07 17:25] LABS: ALANINE AMINOTRANSFERASE 20 U/L (4-49); ALBUMIN 4.2 gm/dL (3.5-5.0); ALKALINE PHOSPHATASE 113 U/L (50-136); ANION GAP 10 mmol/L (7-16); AST,SGOT 26 U/L (15-37); BILIRUBIN,TOTAL 1.2 mg/dL (0.0-1.0); BLOOD UREA NITROGEN 25 mg/dL (9-20); CALCIUM 9.4 mg/dL (8.4-10.2); CARBON DIOXIDE 30 mmol/L (22-30); CHLORIDE 97 mmol/L (98-107); CREATININE, serum 0.88 (0.66-1.25); GLUCOSE 99 mg/dL (74-106); POTASSIUM 3.3 mmol/L (3.4-5.0); SODIUM 137 mmol/L (137-145); TOTAL PROTEIN 7.9 gm/dL (6.4-8.2)
[2019-10-07 17:39] LABS: TROPONIN-I < 0.012 ng/mL (0.000-0.035)
[2019-10-07] MEDS ORDERED: HCTZ 25MG TAB25 MG PO (17:45)
[2019-10-07 22:45] VITALS: BP 134/76; PULSE 74
== END 2019-10-07 22:45 | disposition short-term general hospital (02) ==
LOC: COL.ER 16:45
PROVIDERS: Emergency Medicine
DX: R07.9 Chest pain, unspecified (principal); R06.02 Shortness of breath; M54.5 Low back pain; G89.29 Other chronic pain; M62.81 Muscle weakness (generalized); R20.0 Anesthesia of skin; I11.0 Hypertensive heart disease with heart failure; I50.9 Heart failure, unspecified; I25.10 Atherosclerotic heart disease of native coronary artery without angina pectoris; I25.2 Old myocardial infarction; E78.5 Hyperlipidemia, unspecified; I87.8 Other specified disorders of veins; M10.9 Gout, unspecified; E66.01 Morbid (severe) obesity due to excess calories; Z79.02 Long term (current) use of antithrombotics/antiplatelets; Z79.1 Long term (current) use of non-steroidal anti-inflammatories (NSAID); Z79.82 Long term (current) use of aspirin; Z68.43 Body mass index [BMI] 50.0-59.9, adult; Z86.79 Personal history of other diseases of the circulatory system
CPT/HCPCS: J2270; J7030

== ENCOUNTER 2020-02-14 17:19 | Inpatient (IN) | payer MEDICARE, MEDICAID ==
[~2020-02-14] VITALS: Ht 188 cm; Wt 178.7 kg
[2020-02-14] MEDS ORDERED: TYLENOL 500MG500 MG PO ×2 (19:45→19:46)
[2020-02-14] MEDS ORDERED: ALEVE LIQCAPS PO (19:46)
[2020-02-14] MEDS ORDERED: FLONASE NASAL S16 GM NS (19:47)
[2020-02-14] MEDS ORDERED: ASPIRIN 81M81 MG/TA2 PO (19:47)
[2020-02-14 19:48] VITALS: BP 118/64; PULSE 78; TEMP 97.9
[2020-02-14] MEDS ORDERED: OZEMPIC0.25 MG/0. SQ (19:48)
[2020-02-14] MEDS ORDERED: ALDACTONE 25MG25 M1 PO (19:48)
[2020-02-14] MEDS ORDERED: MIRALAX PA17 GM/Dose PO (19:49)
[2020-02-14 19:58] LABS: INR 1.2 (0.8-3.0); PROTHROMBIN TIME 13.3 SECONDS (9.7-12.8)
[2020-02-14 20:00] LABS: PARTIAL THROMBOPLASTIN TIME 33.9 SECONDS (26.0-37.0)
[2020-02-14 20:07] LABS: BILIRUBIN,TOTAL 0.9 mg/dL (0.0-1.0); CALCIUM 9.5 mg/dL (8.4-10.2); CREATININE, serum 2.1 (0.66-1.25); TOTAL PROTEIN 7.6 gm/dL (6.4-8.2)
[2020-02-14 20:17] LABS: IRON,SERUM 134 ug/dL (35-150)
[2020-02-14 20:25] LABS: COLLECTION METHOD CLEAN CATCH
[2020-02-14 20:27] LABS: TOTAL IRON BINDING CAPACITY 243 ug/dL (261-462)
[2020-02-14 20:31] LABS: POTASSIUM 6.5 mmol/L (3.4-5.0)
[2020-02-14 20:32] LABS: ALBUMIN 4.2 gm/dL (3.5-5.0)
[2020-02-14 20:42] LABS: MUCOUS Present /lpf; PH 5 (5-8); SQUAMOUS EPITHELIAL 0-2 /hpf; URINE APPEARANCE Clear; URINE BACTERIA None Seen /hpf; URINE BILIRUBIN Negative (NEGATIVE); URINE BLOOD Negative (NEGATIVE); URINE COLOR Straw; URINE GLUCOSE Negative (NEGATIVE); URINE KETONE Negative (NEGATIVE); URINE LEUKOCYTE ESTERASE Negative (NEGATIVE); URINE NITRATE Negative (NEGATIVE); URINE PROTEIN(semi-quant) Negative (NEGATIVE); URINE UROBILINOGEN Negative (NEGATIVE); URINE WBC 0-2 /hpf
[2020-02-14 21:22] LABS: URINE PROTEIN:CREAT RATIO 0.2 (0.00-0.14)
[2020-02-14 22:36] VITALS: BP 101/57; PULSE 77; TEMP 98
[2020-02-14 22:38] VITALS: BP 129/114; PULSE 75; TEMP 97.9
--- NOTE | 2020-02-14 22:43 | NUR ---
Pt arrived to unit prior to shift change. Admission form B completed at this time. Pt alert and oriented x4. Complaints of generalized muscle weakness that pt states is improving since admit. Pt states he is able to move his arms and legs significantly more compared to what he has been able to in the last couple days. Skin assessment completed and documented. IVF infusing to right wrist per orders. Tele on. Serrano to dependent dainage with clear, yellow urine. Pt denies any needs/concers. Call light within reach. Bed alarm on. Will continue to monitor
[2020-02-14 23:27] VITALS: BP 104/46; PULSE 83; TEMP 98.4
[2020-02-15 03:22] VITALS: BP 98/47; PULSE 78; TEMP 97.5
--- NOTE | 2020-02-15 05:24 | NUR ---
Pt currently resting in bed. Reports of intermittent upset stomach overnight. Pt attempted to have BM with no success. Pt states he has been passing a lot of gas tonight. IVF infusing per orders. Right hand swelling seen on assessment with some brusing. Pt states this is from a fall prior to coming to the hospital and is unchanged from before being admitted. Serrano catheter to dependent drainage with clear, yellow urine. Tele on. Pt denies any needs/concerns. Call light within reach. Bed alarm on.
[2020-02-15 07:00] LABS: BASO % 0.4 % (0.0-2.0); EOS # 0.4 (0.0-0.7); EOS % 4.7 % (0-4.0); GRAN # 6.1 (1.4-6.5); GRAN % 74.4 % (42.2-75.2); HEMOGLOBIN 10.8 g/dl (13.5-18.0); LYMPH # 1.1 (1.2-3.4); LYMPH % 13.4 % (20.0-51.0); MEAN CELL VOLUME 99 fl (80.0-100.0); MEAN CORPUSCULAR HEMOGLOBIN 32 pg (27.0-31.0); MEAN CORPUSCULAR HGB CONC 32 g/dl (33.0-37.0); MEAN PLATELET VOLUME 10.4 fl (7.4-10.4); MONO # 0.5 (0.1-0.6); MONO % 6.6 % (1.7-9.3); PLATELET COUNT 229 K/mm3 (130-400); RED BLOOD COUNT 3.38 M/mm3 (4.20-5.60); REDCELL DISTRIBUTION WIDTH-CV 13.9 % (11.5-14.5)
[2020-02-15 07:01] LABS: ALBUMIN 3.7 gm/dL (3.5-5.0); CREATININE, serum 2.14 (0.66-1.25); HEMATOCRIT 33.4 % (42.0-52.0); PHOSPHOROUS 5.2 mg/dL (2.5-4.5)
[2020-02-15 07:56] VITALS: BP 111/59; PULSE 79; TEMP 97.5
[2020-02-15 08:04] LABS: POTASSIUM 5.9 mmol/L (3.4-5.0)
--- NOTE | 2020-02-15 09:35 | NUR ---
pt awake and alert upon entry, no C/O pain at this time. Shift assessments complete, left Pt call light in reach, sitting in the recliner.
--- NOTE | 2020-02-15 11:45 | NUR ---
Plan is to return to [facility]. SW met with patient about care plan. Patient reports that he has severe arthritis that cause issues with mobility. Patient reports that he has a sit to stand walker and a wheel chair. Patient reports that he has a brother Calixto that is apart of his care, denies knowing contact information. Patient reports that the home takes care of rx and the pcp with the servicing pcp for the long-term. DPOA is brother Calixto . Will continue to follow for additional care plans.
[2020-02-15 12:03] VITALS: BP 118/61; PULSE 75; TEMP 97.6
[2020-02-15 16:02] VITALS: BP 147/67; PULSE 90; TEMP 98
--- NOTE | 2020-02-15 18:50 | NUR ---
Pt resting in the room, has been able to transfer without assistance to the bedside commode. VS have remained stable.
[2020-02-15 19:46] VITALS: BP 146/80; PULSE 98; TEMP 97.3
--- NOTE | 2020-02-15 20:30 | NUR ---
Initial shift assessment done- states having back pain 11/04,,will give the Tylenol as ordered, Serrano to DD with clear yellow urine. using o2 at 2L/nc, SCD,s on. Pt trying to call and get someone to bring in his home CPAP- not able to get ahold of anyone-- states he will try again tomorrow. Requesting a sandwich - given at this time.
[2020-02-15 23:51] VITALS: BP 130/71; PULSE 93; TEMP 97.5
[2020-02-16 04:25] VITALS: BP 142/70; PULSE 88; TEMP 98.6
--- NOTE | 2020-02-16 06:14 | NUR ---
Did get a few hours of sleep but pt states needs his CPAP-- Bryan Brownlee called and states SEAN would be bringing that in today for patient. Pt did not tolerate bipap so was on 2-3L/nc throughout the night
[2020-02-16 07:55] VITALS: BP 127/64; PULSE 85; TEMP 98
[2020-02-16 08:10] LABS: BASO % 0.3 % (0.0-2.0); EOS # 0.4 (0.0-0.7); EOS % 4.9 % (0-4.0); GRAN # 6.3 (1.4-6.5); GRAN % 79.2 % (42.2-75.2); HEMOGLOBIN 11.2 g/dl (13.5-18.0); LYMPH # 0.7 (1.2-3.4); LYMPH % 8.9 % (20.0-51.0); MEAN CELL VOLUME 97 fl (80.0-100.0); MEAN CORPUSCULAR HEMOGLOBIN 32 pg (27.0-31.0); MEAN CORPUSCULAR HGB CONC 33 g/dl (33.0-37.0); MEAN PLATELET VOLUME 9.9 fl (7.4-10.4); MONO # 0.5 (0.1-0.6); MONO % 6.3 % (1.7-9.3); PLATELET COUNT 244 K/mm3 (130-400); RED BLOOD COUNT 3.49 M/mm3 (4.20-5.60); REDCELL DISTRIBUTION WIDTH-CV 13.8 % (11.5-14.5)
[2020-02-16 08:23] LABS: ALBUMIN 3.9 gm/dL (3.5-5.0); CALCIUM 9.2 mg/dL (8.4-10.2); CREATININE, serum 1.05 (0.66-1.25); PHOSPHOROUS 3.4 mg/dL (2.5-4.5); POTASSIUM 4.8 mmol/L (3.4-5.0)
--- NOTE | 2020-02-16 11:23 | NUR ---
pt assessment completed and charted. Medications administered per may. pt A&O, was on 3L NC, requested "personal cpap", informed that someone from [facility] would be bringing it but we were unsure of time, pt seemed annoyed. Pt requested to be placed back on bipap so "he could sleep". Pt back on bipap after meds given and breakfast. Pt has gonzalez draining clear yellow urine, order for DC, will remove today. Pt has NS @ 100, running to RWR no issues. Pt on FR, renforced, again pt seemed annoyed, rolled eyes. Discoloration to BLE. Pt refused miralax and colace this morning. No other needs expressed.
[2020-02-16 11:35] VITALS: BP 143/79; PULSE 89; TEMP 98.5
--- NOTE | 2020-02-16 16:37 | NUR ---
DEVIN received a call from patients nurse about patient discharging today. DEVIN did contact [facility] with difficulty and then after contacting [facility] it was determined that patient would be going to [facility] [phone]. DEVIN spoke with Jeff Brewer who was nurse at the facility. Fabi asked if patient could walk, and that they would be able to provide transportation tomorrow with notice. DEVIN also asked if patient needed a COVID test. Lou emailed her administration and reported to DEVIN that patient would need a COVID test. DEVIN asked for transport to be arranged for early noon tomorrow. DEVIN did contact patients nurse and informed her of needed covid test and that transportation was arranged for early noon.
--- NOTE | 2020-02-16 16:43 | NUR ---
Pt gonzalez dc'd w/o issues. Received in report that someone would be bringing cpap, it has not arrived. Pt has not had BM today, assisted to bedside commode w/ 1 assist. Pt requesting to shower, assisted to shower, linens changed. Discussed w/ Dr. Zabala, IV was blown/drainage. Verbal order to dc'd IV/tele and IVF. Pt to DC tomorrow. Pt requested zofran for nausea, order changed from IV to ODT. No further needs expressed at this time.
[2020-02-16 16:50] VITALS: BP 149/83; PULSE 89; TEMP 97.9
--- NOTE | 2020-02-16 18:18 | NUR ---
Cpap delivered, set up for pt, pt expressed much gratitude. No further needs.
[2020-02-16 19:21] VITALS: BP 133/75; PULSE 87; TEMP 98.7
--- NOTE | 2020-02-16 20:30 | NUR ---
Initial shift assessment done- has own CPAP for tonight- pt very happy about this! Voiding per urinal, states had a nice shower today. Back pain 10/04-Tylenol given--wants to get some sleep tonight. pt states [facility]
[2020-02-16 23:50] VITALS: BP 132/70; PULSE 84; TEMP 98.4
[2020-02-17 03:55] VITALS: BP 142/62; PULSE 82; TEMP 98.4
--- NOTE | 2020-02-17 06:04 | NUR ---
Did sleep with CPAP all night- did get a Tums during the night for "upset stomach" no requests at this time
[2020-02-17 06:38] LABS: BASO % 0.2 % (0.0-2.0); EOS # 0.4 (0.0-0.7); EOS % 5.1 % (0-4.0); GRAN # 5.9 (1.4-6.5); HEMOGLOBIN 10.9 g/dl (13.5-18.0); LYMPH # 1.2 (1.2-3.4); LYMPH % 14.9 % (20.0-51.0); MEAN CELL VOLUME 99 fl (80.0-100.0); MEAN CORPUSCULAR HEMOGLOBIN 32 pg (27.0-31.0); MEAN CORPUSCULAR HGB CONC 33 g/dl (33.0-37.0); MEAN PLATELET VOLUME 9.9 fl (7.4-10.4); MONO # 0.5 (0.1-0.6); MONO % 6.7 % (1.7-9.3); PLATELET COUNT 241 K/mm3 (130-400); RED BLOOD COUNT 3.36 M/mm3 (4.20-5.60); REDCELL DISTRIBUTION WIDTH-CV 13.7 % (11.5-14.5)
[2020-02-17 06:41] LABS: HEMATOCRIT 33.3 % (42.0-52.0)
[2020-02-17 06:48] LABS: ALBUMIN 3.9 gm/dL (3.5-5.0); CALCIUM 9.4 mg/dL (8.4-10.2); CREATININE, serum 1.09 (0.66-1.25); PHOSPHOROUS 3.6 mg/dL (2.5-4.5); POTASSIUM 4.1 mmol/L (3.4-5.0)
[2020-02-17 07:27] VITALS: BP 156/79; PULSE 80; TEMP 98
--- NOTE | 2020-02-17 09:19 | NUR ---
pt assessment completed and charted, medications administered per may. pt A&O, laying in bed upon entry. pt states he "slept better last night", did use cpap machine. Pt denies any pain at this time, pt denies chest pain, dizziness, vomiting, diarrhea. Pt states he has had some indigestion. Received TUMS PRN, crackers and sprite. Pt has no IV access, to discharge today. LS cta, HRRR, BS active. Pt refused colace and miralax. Pt has generalized edema and discoloration to BLE. Pulses palpable. Pt ambulating w/ walker w/ assist to bathroom. Pt on room air, breathing even and unlabored. No further needs at this time. Call light within reach.
--- NOTE | 2020-02-17 09:51 | NUR ---
ANDREA received a call from medical staff inquiering about time of transport for patient, and a request for clothing for patient from ([place]) ANDREA did contact Lou at [facility] and asked about transport and clothing. Lou did call ANDREA back and indicated that transport will be there by noon. PAge also requested [facility] to be included in discharge orders. nAdrea contacted medical staff to inform them of information. ANDREA waiting for discharge orders. fax number provided was [phone].
[2020-02-17 09:57] VITALS: BP 156/79; PULSE 80; TEMP 98
[2020-02-17 11:17] VITALS: BP 145/85; PULSE 82; TEMP 98.1
--- NOTE | 2020-02-17 13:28 | NUR ---
pt discharged to [facility]. Pt assisted in getting ready and escorted out via WC that was brought by transportation. Report called to receiving nurse. No further needs at this time. All questions answered.
== END 2020-02-17 13:29 | DRG 683 ==
LOC: MEDICAL 17:19
PROVIDERS: ADMIT Internal Medicine Nephrology
DX: N17.9 Acute kidney failure, unspecified (principal); E87.2 Acidosis; Z68.43 Body mass index [BMI] 50.0-59.9, adult; E87.5 Hyperkalemia; I95.9 Hypotension, unspecified; E66.01 Morbid (severe) obesity due to excess calories; D64.9 Anemia, unspecified; E11.9 Type 2 diabetes mellitus without complications; I25.10 Atherosclerotic heart disease of native coronary artery without angina pectoris; E78.5 Hyperlipidemia, unspecified; M10.9 Gout, unspecified; G47.33 Obstructive sleep apnea (adult) (pediatric); I11.0 Hypertensive heart disease with heart failure; I50.9 Heart failure, unspecified; I25.2 Old myocardial infarction
CPT/HCPCS: J2405; J7030